=== PATIENT | female | born 2005 | race Caucasian/White ===

== ENCOUNTER 2023-06-10 10:13 | Emergency (ER) | payer OTHER ==
[~2023-06-10] VITALS: Ht 152.4 cm; Wt 49.9 kg
[2023-06-10 10:35] VITALS: BP 107/73; PULSE 86; RESP 18; TEMP 97; O2SAT 98
[2023-06-10] MEDS ORDERED: KETOROLAC 60 MG/2 ML VIAL IM ONE (11:45)
[2023-06-10] MEDS ORDERED: ACET-503 PO (11:54)
[2023-06-10] MEDS ORDERED: IBUP-1842 PO (11:54)
[2023-06-10 12:17] VITALS: BP 107/73; PULSE 86; RESP 18; TEMP 97; O2SAT 98
== END 2023-06-10 12:18 | disposition home or self-care (01) ==
LOC: MED 10:13
DX: R10.30 Lower abdominal pain, unspecified (principal); Z88.0 Allergy status to penicillin; V49.88XA Car occupant (driver) (passenger) injured in other specified transport accidents, initial encounter; Y93.89 Activity, other specified; Y92.89 Other specified places as the place of occurrence of the external cause; Y99.8 Other external cause status
CPT/HCPCS: 81002; 81025; 96372; 99283; J1885